=== PATIENT | male | born 1995 | race Caucasian/White ===

== ENCOUNTER 2019-03-06 18:44 | Emergency (ER) | payer OTHER ==
[2019-03-06 18:50] VITALS: BP 112/53; PULSE 60; TEMP 97.9; BMI 21.1
--- NOTE | 2019-03-06 19:29 | PDOC ---
History of Present Illness - General Chief Complaint: Pain Stated Complaint: HEADACHE, SICK Time Seen by Provider: 03/06/19 19:12 History Source: Patient Exam Limitations: No Limitations Past History - Past Medical History Allergies/Adverse Reactions: Allergies Allergy/AdvReac Type Severity Reaction Status Date / Time No Known Allergies Allergy Verified 03/06/19 18:50 Home Medications: Ambulatory Orders NK [No Known Home Medication] 03/06/19 COPD: No - Suicide/Smoking/Psychosocial Hx Smoking History: Current every day smoker Information on smoking cessation initiated: No *Physical Exam - Vital Signs Last Vital Signs Temp Pulse Resp BP Pulse Ox 97.9 F 60 18 112/53 L 99 03/06/19 18:48 03/06/19 18:48 03/06/19 18:48 03/06/19 18:48 03/06/19 18:48 - Physical Exam General Appearance: No: Apparent Distress HEENT: positive: EOMI, THALIA Respiratory/Chest: positive: Lungs Clear, Normal Breath Sounds. negative: Respiratory Distress Cardiovascular: positive: Regular Rhythm, Regular Rate, S1, S2. negative: Murmur Neurologic: positive: stripper black and white II-XII NML intact, Fully Oriented, Alert, Normal Mood/ Affect, Motor Strength 5/5. negative: Facial Droop, Sensory Deficit, Confused, Disoriented Medical Decision Making - Medical Decision Making 23 y/o M with no sig pmh presents with feeling heaviness along R side of face for few seconds 2 days ago. Sxs resolved. Was initially not concerned, but after searching up stuff in internet, decided to come in for evaluation. Denies headache, visual/gait changes, sob, cp, abd pain, n/v, numbness/tingling/ weakness of extremities. Denies drug use PE unremarkable with no focal deficits No risk factors for stroke stable for dc 03/06/19 19:26 *DC/Admit/Observation/Transfer Diagnosis at time of Disposition: Paresthesia - Discharge Dispostion Disposition: HOME Condition at time of disposition: Stable Decision to Admit order: No - Referrals - Patient Instructions Printed Discharge Instructions: DI for Numbness/tingling Additional Instructions: Thank you for choosing [facility]. It was a pleasure taking care of you. Recommend follow-up with your doctor in 2 days Return to the Emergency Department if your symptoms worsen or persist, you have vomiting, weakness of extremities (arms and/or legs), changes in vision or walking or other concerning symptoms. - Post Discharge Activity
== END 2019-03-06 19:41 | disposition home or self-care (01) ==
LOC: JERFT 18:44
DX: R20.2 Paresthesia of skin (principal)
CPT/HCPCS: 99282-25